=== PATIENT | female | born 1990 | race Caucasian/White ===

== ENCOUNTER 2016-07-24 19:33 | Inpatient (IN) | payer BC ==
[~2016-07-24] VITALS: Ht 160 cm; Wt 80.7 kg
[2016-07-24 19:56] VITALS: BP 127/79
[2016-07-24] MEDS ORDERED: PRENATAL TABLE1 EAC3 PO (20:24)
[2016-07-24 20:25] LABS: EOSINOPHIL (%) 0.3 % (0-5); HEMATOCRIT 35.3 % (36.0-46.0); IMMATURE GRANULOCYTE (%) 0.6 % (0.0-0.7); IMMATURE GRANULOCYTE COUNT 0.1 K/uL; INSTRUMENT ABS NEUTROPHIL CT 7.7 K/uL; LYMPHOCYTE COUNT 2.6 K/uL (1.0-2.8); MCH 26.7 PG (29.0-34.0); MCHC 33.1 G/DL (30.0-36.0); MCV 80.6 FL (83-99); MEAN PLAT.VOLUME 10.9 uM^3 (9.5-12.4); MONOCYTE (%) 6.8 % (3-12); MONOCYTE COUNT 0.8 K/uL (0-0.8); NEUTROPHIL (%) 68.4 % (45-76); NEUTROPHIL COUNT 7.7 K/uL (1.8-6.4); PLATELET COUNT 345 K/uL (156-360); RBC DIS.WIDTH-CV 13.6 % (11.8-14.6); RED BLOOD COUNT 4.38 M/uL (3.80-5.20); WHITE BLOOD COUNT 11.3 K/uL (4.1-10.2)
[2016-07-24 21:15] VITALS: BP 121/85
[2016-07-24 21:47] VITALS: BP 121/80
[2016-07-24 22:15] VITALS: BP 116/82
[2016-07-24 23:20] VITALS: BP 122/80
[2016-07-25] VITALS (18 sets, daily range): BP systolic 106–137; BP diastolic 63–96
[2016-07-25] MEDS ORDERED: IBUPROFEN800 MG PO (10:08)
[2016-07-26 07:02] VITALS: BP 111/75
[2016-07-26 16:24] VITALS: BP 114/67
[2016-07-26 22:53] VITALS: BP 130/85
[2016-07-27 07:08] VITALS: BP 120/78
== END 2016-07-27 13:43 | disposition home or self-care (01) | DRG 775 ==
LOC: LDRP-OP 19:33 → 2WEST 19:36
PROVIDERS: Nurse Practitioner
PROC: 0HQ9XZZ Repair Perineum Skin, External Approach (ICD-10-PCS; principal; 2016-07-25)
PROC: 10E0XZZ Delivery of Products of Conception, External Approach (ICD-10-PCS; principal; 2016-07-25)
PROC: 10907ZC Drainage of Amniotic Fluid, Therapeutic from Products of Conception, Via Natural or Artificial Opening (ICD-10-PCS; 2016-07-25)
PROC: 00HU33Z Insertion of Infusion Device into Spinal Canal, Percutaneous Approach (ICD-10-PCS; 2016-07-25)
PROC: 3E0S3CZ (ICD-10-PCS; 2016-07-25)
DX: O70.0 First degree perineal laceration during delivery (principal); O69.81X0 Labor and delivery complicated by cord around neck, without compression, not applicable or unspecified; Z3A.39 39 weeks gestation of pregnancy; Z37.0 Single live birth
CPT/HCPCS: 85025; C1755; G0378; J0595; J7120